=== PATIENT | male | born 1980 | race Caucasian/White ===

== ENCOUNTER 2024-07-24 18:42 | Emergency (ER) | payer MEDICARE, MEDICAID, SELFPAY ==
--- NOTE | 2024-07-24 18:43 | ECG_ITS ---
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
[2024-07-24 18:51] VITALS: BP 162/101; PULSE 72; TEMP 36.7; O2SAT 95; BMI 33.5
--- NOTE | 2024-07-24 18:57 | XRR_ITS ---
PROCEDURE INFORMATION: Exam: XR Chest Exam date and time: 07/24/2024 7:36 PM Age: 43 years old Clinical indication: Chest pressure; Patient HX: Chest pain TECHNIQUE: Imaging protocol: Radiologic exam of the chest. Views: 1 view. COMPARISON: No relevant prior studies available. FINDINGS: Lungs: No consolidation. Pleural spaces: No large pleural effusion. No pneumothorax. Heart/Mediastinum: Cardiomediastinal silhouette within normal limits. Bones/joints: No acute abnormality. XR/XR chest 1V portable [id number] IMPRESSION: No acute findings.
--- NOTE | 2024-07-24 18:57 | ECG_ITS ---
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1980 Requested By: Mary Lou Garcia Order Number: [id number] Gerard MD: MAX POLLOCK Measurements Intervals [place] Rate: 71 P: 0 W[place]: 0 QRS: -5 QRSD: 122 T: 58 QT: 413 QTc: 450 Interpretive Statements ATRIAL FIBRILLATION MODERATE INTRAVENTRICULAR CONDUCTION DELAY [110+ ms QRS DURATION] ABNORMAL RHYTHM ECG Compared to ECG 07/24/2024 18:43:45 Intraventricular conduction delay now present Sinus rhythm no longer present Myocardial infarct finding no longer present Electronically Signed On 07-26-2024 21:01:59 CDT by MAX POLLOCK [id number]
--- NOTE | 2024-07-24 19:07 | ED_ITS ---
HPI - Chest Pain 2 General: Chief Complaint: Chest Pain Stated Complaint: CP,SOB Time Seen by Provider: 07/24/24 18:56 History of Present Illness: 43 presents emergency room with chest pa in. Over the past 2 or 3 weeks he has been having 15 to 20-minute episodes of sharp left chest pain. He has had some exertional dyspnea. He says the chest pain comes on randomly and can be at rest or while exerting himself. He goes away spontaneously as well. No fevers. No cough. No nausea or vomiting. No abdominal pain. He is post to have an echo done next week. No lower extremity swelling. Related Data Allergies Allergy/AdvReac Type Severity Reaction Status Date / Time No Known Allergies Allergy Verified 07/24/24 18:54 Review of Systems 2 Narrative: Constitutional symptoms: Negative except as documented in HPI. Skin symptoms: Negative except as documented in HPI. Eye symptoms: Negative except as documented in HPI. ENMT symptoms: Negative except as documented in HPI. Respiratory symptoms: Negative except as documented in HPI. Cardiovascular symptoms: Negative except as documented in HPI. Gastrointestinal symptoms: Negative except as documented in HPI. Genitourinary symptoms: Negative except as documented in HPI. Musculoskeletal symptoms: Negative except as documented in HPI. Neurologic symptoms: Negative except as documented in HPI. Psychiatric symptoms: Negative except as documented in HPI. Endocrine symptoms: Negative except as documented in HPI. Physical Exam 2 Narrative: EXAM NARRATIVE: General: Alert, no acute distress. Skin: Warm, dry. Head: Normocephalic, atraumatic. Neck: Supple, trachea midline. Eye: Extraocular movements are intact. Ears, nose, mouth and throat: mucosa moist. Cardiovascular: Regular, Normal peripheral perfusion. Respiratory: Lungs are clear to auscultation, respirations are non-labored, breath sounds are equal, Symmetrical chest wall expansion. Gastrointestinal: Soft, Nontender, Non distended Musculoskeletal: Normal ROM, no deformity. Neurological: Alert and oriented, No focal neurological deficit observed. Psychiatric: Cooperative, appropriate mood & affect. Course 2 Vital Signs: Vital signs: Vital Signs Temperature 98.0 F 07/24/24 18:51 Pulse Rate 72 07/24/24 18:51 Blood Pressure 162/101 07/24/24 18:51 Pulse Oximetry 95 07/24/24 18:51 Oxygen Delivery Me thod Room Air 07/24/24 18:51 MDM - Chest Pain Medical Decision Making Differential diagnosis for patient with chest pain includes but is not limited to and based on the above HPI, review of systems and physical exam: Pneumonia. unstable angina. angina. Acute coronary syndrome / UT. Pulmonary embolism. Costochondritis / musculoskeletal. Pleurisy. Pericarditis. Esophageal spasm. Pancreatis. Cholecystitis. Orders placed to evaluate differential diagnosis based on the above differential, HPI and physical exam EKG: Time 1843. Rate 68. Normal sinus rhythm, No ST-T changes, no ectopy, normal CA & QRS intervals, This was reviewed and interpreted by myself the ER physician at 1848 Chest x-ray: No acute process. No infiltrate. No pneumothorax. This was reviewed and interpreted by myself the ER physician. Lab Review: Laboratory results were reviewed and interpreted by myself the emergency room physician. Lab work is unremarkable. This includes a normal troponin I reviewed the patient's medical record. Reexamination: Patient remained stable. No increased work of breathing. No altered mental status. No focal motor deficits. Assessment and plan: Chest pain - Discharged home - Discussed plan with patient. Answered any questions. - Evaluation and treatment of this problem were appropriate in the emergency setting. Lab Data 07/24/24 19:07 07/24/24 19:07 Laboratory Results WBC 9.82 10^3/uL (3.29-11.43) 07/24/24 19:07 RBC 4.93 10^6/uL (3.85-5.65) 07/24/24 19:07 Hgb 15.00 g/dL (11.27-16.99) 07/24/24 19:07 Hct 44.1 % (37-53) 07/24/24 19:07 MCV 89.5 fl (82-101) 07/24/24 19:07 MCH 30.4 pg (27-33) 07/24/24 19:07 MCHC 34.0 g/dL (30-55) 07/24/24 19:07 RDW 12.3 % (12.1-15.1) 07/24/24 19:07 Plt Count 214 10^3/cmm (157-399) 07/24/24 19:07 MPV 10.9 fL (7.4-10.4) H 07/24/24 19:07 Neut % (Auto) 57.3 % 07/24/24 19:07 Lymph % (Auto) 27.1 % 07/24/24 19:07 [place] % (Auto) 9.0 % 07/24/24 19:07 Eos % (Auto) 5.6 % 07/24/24 19:07 Baso % (Auto) 0.5 % 07/24/24 19:07 Neut # (Auto) 5.63 10^3/uL (1.8-7.7) 07/24/24 19:07 Lymph # (Auto) 2.7 10^3/uL (0.8-4.8) 07/24/24 19:07 Aiken # (Auto) 0.9 10^3/uL (0.2-0.9) 07/24/24 19:07 Eos # (Auto) 0.6 10^3/uL (0.0-0.8) 07/24/24 19:07 Baso # (Auto) 0.1 10^3/uL (0.0-0.1) 07/24/24 19:07 Nucleated RBC % (auto) 0 % 07/24/24 19:07 Nucleated RBCs # 0.0 /100WBC 07/24/24 19:07 Sodium 143 mmol/L (136-145) 07/24/24 19:07 Potassium 4.4 mmol/L (3.5-5.1) 07/24/24 19:07 Chloride 106 mmol/L (98-107) 07/24/24 19:07 Carbon Dioxide 26 mmol/L (22-29) 07/24/24 19:07 Anion Gap 15.4 (5-19) 07/24/24 19:07 BUN 15 mg/dL (6-20) 07/24/24 19:07 Creatinine 1.0 mg/dL (0.7-1.2) 07/24/24 19:07 GFR Calculation 81.2 mL/min (90-130) L 07/24/24 19:07 Glucose 132 mg/dL (65-115) H 07/24/24 19:07 Calculated Osmolality 299 mOsm/kg (285-295) H 07/24/24 19:07 Calcium 8.9 mg/dL (8.5-10.5) 07/24/24 19:07 Total Bilirubin 0.5 mg/dL (0.15-1.2) 07/24/24 19:07 AST 15 U/L (0-40) 07/24/24 19:07 ALT 22 U/L (0-41) 07/24/24 19:07 Alkaline Phosphatase 90 U/L (40-130) 07/24/24 19:07 Troponin T Baseline 9 ng/L (0-15) 07/24/24 19:07 C-Reactive Protein 3.0 mg/L (0.0-4.9) 07/24/24 19:07 NT-Pro-B Natriuret Pep 184 pg/mL (0-125) H 07/24/24 19:07 Total Protein 7.1 g/dL (6.6-8.7) 07/24/24 19:07 Albumin 4.7 g/dL (3.5-5.2) 07/24/24 19:07 Globulin 2.4 g/dL (1.3-4.6) 07/24/24 19:07 XR interpretation done by ED provider, pending radiology final review Discharge Plan Discharge Patient Disposition: Home Clinical Impression: Chest pain Condition: Stable Discharge Orders: Discharge ED (Routine); Ordered 07/24/24 Ordered By: Mary Lou Rod Referrals: Sienna Singh MD [Primary Care Provider] - Discharge Diet: Usual diet Discharge Activity: Increase activity as tolerated Patient Instructions: Noncardiac Chest Pain (ED) Activity Restrictions/Additional Instructions: Thank you for choosing [facility] for your healthcare needs today. Please realize this is an emergency room and that we are providing you with a medical screening exam and this may not be complete and all inclusive of all the testing and or work up that you may need to determine your ailment or severity of your illness. You have been screened and evaluated and felt safe for discharge. Health conditions do change or evolve sometimes and as such it is important that you follow up with your Primary Doctor to be re checked, 3-5 days is a general good time frame for follow up. 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
[2024-07-24 19:29] LABS: Basophils # 0.1 10^3/uL (0.0-0.1); Basophils % 0.5 %; Eosinophils # 0.6 10^3/uL (0.0-0.8); Eosinophils % 5.6 %; Hematocrit 44.1 % (37-53); Lymphocytes # 2.7 10^3/uL (0.8-4.8); Lymphocytes % 27.1 %; Mean Corpuscular Hemoglobin 30.4 pg (27-33); Mean Corpuscular Volume 89.5 fl (82-101); Mean Platelet Volume 10.9 fL (7.4-10.4); Monocytes # 0.9 10^3/uL (0.2-0.9); Neutrophils # 5.63 10^3/uL (1.8-7.7); Neutrophils % 57.3 %; Nucleated Red Blood Cells % 0 %; Platelet Count 214 10^3/cmm (157-399); Red Blood Count 4.93 10^6/uL (3.85-5.65); Red Cell Distribution Width 12.3 % (12.1-15.1); White Blood Count 9.82 10^3/uL (3.29-11.43)
[2024-07-24 19:55] LABS: Troponin(5th) Baseline 9 ng/L (0-15)
[2024-07-24 20:03] LABS: Alanine Aminotransferase 22 U/L (0-41); Albumin Level 4.7 g/dL (3.5-5.2); Alkaline Phosphatase 90 U/L (40-130); Blood Urea Nitrogen 15 mg/dL (6-20); Calcium 8.9 mg/dL (8.5-10.5); Carbon Dioxide 26 mmol/L (22-29); Chloride 106 mmol/L (98-107); Creatinine Clr Calc Pharmacy 121.8331; Globulin 2.4 g/dL (1.3-4.6); Glomerular Filtration Rate 81.2 mL/min (90-130); Glucose 132 mg/dL (65-115); NT Pro B Type Natriuretic Pept 184 pg/mL (0-125); Osmolality Calculated 299 mOsm/kg (285-295); Sodium 143 mmol/L (136-145); Total Bilirubin 0.5 mg/dL (0.15-1.2); Total Protein 7.1 g/dL (6.6-8.7)
[2024-07-24 20:05] LABS: Anion Gap 15.4 (5-19); Aspartate Amino Transferase 15 U/L (0-40); Potassium 4.4 mmol/L (3.5-5.1)
[2024-07-24 20:49] VITALS: BP 148/76; PULSE 86; O2SAT 99
== END 2024-07-24 20:50 | disposition home or self-care (01) ==
PROVIDERS: Emergency Provider Emergency Medicine; PCP Hospitalist
DX: R07.9 Chest pain, unspecified (principal)
CPT/HCPCS: 71045; 80053; 83880; 84484; 85025; 86140; 93005; 99285

== ENCOUNTER → 2025-05-02 09:55 | Outpatient (BNVA) | payer MEDICARE, MEDICAID, SELFPAY | PROVIDERS: PCP Hospitalist; Referring Provider Nurse Practitioner Family; Visit Provider Internal Medicine Cardiovascular Disease | DX: I11.0 Hypertensive heart disease with heart failure (principal); I50.23 Acute on chronic systolic (congestive) heart failure; I48.91 Unspecified atrial fibrillation; Z79.82 Long term (current) use of aspirin; I49.3 Ventricular premature depolarization; F32.A Depression, unspecified; F15.91 Other stimulant use, unspecified, in remission; Z87.891 Personal history of nicotine dependence; I50.9 Heart failure, unspecified; R53.83 Other fatigue; R07.9 Chest pain, unspecified; R06.02 Shortness of breath; I10 Essential (primary) hypertension | CPT/HCPCS: 36415; 80053; 83735; 83880; 84443; 85025; 93005; 99204 ==

== ENCOUNTER 2025-05-30 06:54 | Outpatient (CLI) | payer MEDICARE, MEDICAID, SELFPAY ==
--- NOTE | 2025-05-30 07:15 | USCV_ITS ---
Ji Capellan Age: 44 Gender: M : 1980 Exam Date: 05/30/2025 07:07 Ordering Phys: Dioni Gotti MD ([email or web address]) Technologist: Exam Location: [facility] [place] Indication: hx of mi BP: 130 / 80 HR: 64 Rhythm: Sinus Technical Quality: Adequate MEASUREMENTS (Male / Female) Normal Values 2D ECHO LV Diastolic Diameter PLAX 5.5 cm 4.2 - 5.9 / 3.9 - 5.3 cm IVS Diastolic Thickness 1.3 cm 0.6 - 1.0 / 0.6 - 0.9 cm IVS Systolic Thickness 1.8 cm LVPW Diastolic Thickness 1.6 cm 0.6 - 1.0 / 0.6 - 0.9 cm LVPW Systolic Thickness 2.6 cm LVOT Diameter 2.1 cm LV Ejection Fraction 2D Teich 57.3 % LV Ejection Fraction MOD 4C 52.0 % LV Ejection Fraction MOD 2C 50.9 % LV Ejection Fraction 2C AL 50.6 % LA Diameter 3.7 cm RA Systolic Volume 4C AL 42.5 ml RA Systolic Volume 4C MOD 39.9 ml Aorta at Sinotubular Diameter 3.4 cm IVC Diameter 1.5 cm M-MODE LA Ao Ratio MM 1.1 AV Cusp Separation MM 3.0 cm DOPPLER AV Peak Velocity 88.0 cm/s LVOT Peak Velocity 75.0 cm/s AV Area Cont Eq vti 2.9 cm squared AV Area Cont Eq pk 2.9 cm squared MV Peak Velocity 63.0 cm/s MV Area PHT 3.1 cm squared Mitral E to A Ratio 0.8 TV Peak Velocity 118.5 cm/s TR Peak Velocity 133.0 cm/s TR Peak Gradient 7.1 mmHg TV Peak E Velocity 63.0 cm/s PV Peak Velocity 104.0 cm/s FINDINGS Left Ventricle Normal left ventricular cavity size. Segmental wall motion abnormality with akinesis of the apical cap the apical septum and severe hypokinesis of the rest of the apical segments. Overall mildly reduced left ventricular systolic function with estimated ejection fraction of 45%. Mild concentric left ventricular hypertrophy. Indeterminate left ventricular diastolic function Right Ventricle Normal right ventricular size and systolic function. RVSP could not be calculated due to incomplete tricuspid regurgitation velocity profile. Right Atrium Normal right atrial size. Left Atrium Normal left atrial size. Mitral Valve Structurally normal mitral valve. No mitral valve stenosis. No mitral valve regurgitation. Aortic Valve No aortic valve stenosis. No aortic valve regurgitation. Tricuspid Valve No tricuspid valve regurgitation. Pulmonic Valve No pulmonary valve stenosis. No pulmonary valve regurgitation. Pericardium No pericardial effusion. Aorta Normal size aortic root and proximal ascending aorta. IVC Normal inferior vena cava. CONCLUSIONS 1. Mild left ventricular systolic dysfunction. Regional wall motion abnormality with akinetic apical septum and apical And severe hypokinesis of the rest of the apical segments. Overall ejection fraction mildly reduced at 45%. 2. No significant valvular abnormalities found. Dioni Gotti MD, FACC (Electronically Signed) Final Date: 31 May 2025 20:57 S
== END 2025-05-30 06:55 | disposition home or self-care (01) ==
LOC: RAD 06:55
PROVIDERS: PCP Hospitalist; Visit Provider Internal Medicine Cardiovascular Disease
DX: R06.02 Shortness of breath (principal); R93.1 Abnormal findings on diagnostic imaging of heart and coronary circulation; I51.89 Other ill-defined heart diseases
CPT/HCPCS: 93306